=== PATIENT | male | born 1965 | race Caucasian/White ===

== ENCOUNTER 2017-05-18 10:13 | Inpatient (IN) | payer MEDICARE, MEDICAID ==
[2017-05-18] VITALS (8 sets, daily range): BP systolic 104–135; BP diastolic 75–96; PULSE 71–142; RESP 8–17; O2SAT 97–98
[~2017-05-18] VITALS: Ht 174 cm; Wt 102.2 kg
[2017-05-18] MEDS ORDERED: Diltiazem 5 mg/mL 5 mL Inj IVPUSH ONE ×2 (10:50→12:15)
--- NOTE | 2017-05-18 10:50 | ED.REPORT ---
HPI-Chest Pain 40 and Over Date of Service May 18, 2017 ED Provider: Ruben Abel MD A 52 year old male with a history of paroxysmal A-fib, hypertension and thyroid disease presents to the ED via EMS with heart palpitations that began 1 hour prior to arrival. He reportedly woke up this morning with heart arrhythmia and contacted EMS after his symptoms persisted. His discomfort has been constant since onset. Patient has never required cardioversion for his A-fib and is not currently taking any anticoagulants. His last episode of A-fib was one year ago. Patient is typically bradycardic at his baseline. Patient denies any fever , chills, chest pain or SOB. He currently takes Aspirin, metoprolol and buprenorphine. He has been taking his medications as prescribed. Nursing Notes Stated Complaint: ARRTHYMIA Chief Complaint: Dysrhythmia/Cardiac Nursing Notes Reviewed: Yes Allergies: Coded Allergies: oxymorphone HCl (Verified Allergy, Unknown, 05/18/17) dystonic reactions x 3 weeks. Scheduled Aspirin (Aspirin) 81 Mg Tablet 81 MG PO DAILY Buprenorphine (Buprenorphine) 2 Mg Tab.subl 4 MG SL q6 hr Levothyroxine (Levothyroxine) 75 Mcg Tablet 75 MCG PO DAILY Metoprolol Tartrate (Metoprolol Tartrate) 25 Mg Tablet 25 MG PO BID Omeprazole (Omeprazole) 40 Mg Capsule.dr 40 MG PO DAILY Propafenone (Propafenone) 150 Mg Tablet 150 MG PO Q8H Scheduled PRN Alprazolam (Alprazolam) 1 Mg Tablet 1 MG PO DAILY PRN PRN For Anxiety Ibuprofen (Ibuprofen) 600 Mg Tablet 600 MG PO BID PRN PRN For Pain oxyCODONE-Acetaminophen 10-325 mg (oxyCODONE-Acetaminophen 10-325 mg) 1 Each Tablet 1 TABLET PO Q4H PRN PRN For Pain General Time Seen by MD: 10:49 Chief Complaint Other (Heart Palpitations) Hx Obtained From: Patient Arrived By: Ambulance Sudden in Onset?: No Onset Occurred: 1 - 4 hours ago Symptom Duration: Constant Associated with: Denies: Fever, Shortness of Breath Pertinent Negative: Pt denies other symptoms Recent Healthcare: No recent doctor visit, No recent hospitalization Risk Factors )( CAD Risk Stratification Hypertension Risk factors reviewed )( TAD Risk Stratification Hypertension Risk factors reviewed )( PE Risk Stratification Risk factors reviewed Past Medical History 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 Smoking History Never Smoker Social History Other Social History: Local resident Ambulatory Status Independent Review of Systems Constitutional: Denies: Chills, Fever Respiratory: Denies: Shortness of breath Cardiovascular: Reports: Palpitations, Denies: Chest pain Complete sys rev & neg: except as marked. Physical Exam Initial Vital Signs Vital Signs (First) Date Time Temp Pulse Resp B/P Pulse Ox O2 Delivery O2 Flow Rate FiO2 05/18/17 10:46 37.1 124 12 135/96 05/18/17 12:37 Room Air Initial VS: Reviewed Head / Eyes: Atraumatic, Normocephalic, PERRL Neck: Supple, Non-tender, Full range of motion Extremities: Vascular intact, Neuro intact, No swelling, No tenderness Skin: Warm, Dry, No cyanosis Neurologic: Alert, Oriented, Nonfocal Psychiatric: Mood/affect normal, Behavior normal, Normal thought content General/Constitutional: Awake, Alert, No acute distress Respiratory / Chest: Atraumatic, Breath sounds NL, Breath sounds = bilat, No respiratory distress Cardiovascular: Regular rhythm, Heart sounds NL, No murmurs, Peripheral circulation NL (No LE edema), Pulses = bilaterally Heart Rate / Rhythm: Positive: Tachycardia Abdomen: Atraumatic, Soft, Non-tender Interpretation & Diagnostics Lab Results Interpretation Result Diagram: 05/19/17 0600 05/19/17 0600 Test 05/18/17 10:48 Neutrophils (%) (Auto) 48.5% (40-74) Lymphocytes (%) (Auto) 36.0% (14-46) Monocytes (%) (Auto) 10.1% (4-12) Eosinophils (%) (Auto) 4.4% (0-5) Basophils (%) (Auto) 0.8% (0-3) Prothrombin Time 10.0sec (8.1-12.5) Prothromb Time International Ratio 0.94ratio Magnesium Level 1.9mg/dL (1.6-2.6) Troponin T 0.010ug/L (0.0-0.011) Thyroid Stimulating Hormone (TSH) 4.980uIU/mL (0.450-4.500) ECG Interpretation ECG Interpretation: A-fib Rate 120 bpm No STT changes Time: 10:47 Interpreted by: ED physician X-Ray Chest Interpretation Chest Xray Interpretation: IMPRESSION: No acute pulmonary process. Dictated by: Temitope Acuna M.D. on 05/18/2017 at 11:22 Interpretation / Wet Read by: Interpret - ED physician Re-Eval/Medical Decision Med Decision/Clinical Course 82-year-old male history of paroxysmal atrial fibrillation presenting with atrial fibrillation with RVR. He believes he went into this within the last 24 hours. On arrival with atrial fibrillation with RVR heart rate up to the 150s. He was given multiple doses of IV diltiazem with transient improvements. However he continued to go back up into the 150s. He was placed on diltiazem drip and admitted to the hospital. He is currently on an aspirin for anticoagulation. He is on propafenone 150mg TID and metoprolol 12.5mg po bid. he was also given 1 dose of metoprolol 25 mg in ER. Admitted to hospitalist. Time of Eval: 11:44 Patient Status: Condition improved Re-Evaluation/Progress Note: He is informed of his reassuring lab work, EKG and chest X-ray. Still in A-fib. Time of Eval: 12:11 Patient Status: Condition improved Re-Evaluation/Progress Note: A-fib improved. He is currently complaining of dental pain. Patient is informed of his results. Time of Eval: 13:18 Patient Status: Condition improved Re-Evaluation/Progress Note: Patient is rechecked. HR = 88 All questions about the intended treatment plan are addressed. He understands and agrees with the plan. Time of Eval: 13:39 Patient Status: Condition worsened Re-Evaluation/Progress Note: HR = 126 He is informed of the recommendation to admit and agrees with the recommended plan to admit with Diltiazem drip. Consultation #1: Referral / Consult Name: Eladia Polo MD Consulted With: Cardiology Call Returned at: 12:18 Sample Examiner: Agrees with eval, Agrees with plan Note: Increase Metoprolol dose to 25mg Start on Eloquis Consultation #2: Referral / Consult Name: Isabel Gibson DO Consulted With: Hospitalist Call Returned at: 13:52 Sample Examiner: Will see patient, Agrees with eval, Agrees with plan, Accepts admit Counseled Regarding: Diagnosis, Lab results, Need for admission Discharge & Departure Primary Impression: Atrial fibrillation with RVR Disposition: ADMITTED TO HOSPITAL Discharge Condition All VS Reviewed: Yes Condition: Stable Referrals: Ovi Alfredo MD (PCP) Crit Care Except Billable Proc Time Spent: 30-74 minutes (50 minutes) Services Performed: Patient management by me, Time spent at bedside, Reviewing test results, Reviewing imaging, Discussing patient care, Documentation in record Scribe Attestation Portions of this note were transcribed by Tahira Leslie. I, Dr. Abel personally performed the history, physical exam and medical decision-making; I reviewed and confirmed the accuracy of the information in the transcribed note. Signed by: Rosalie Mcginnis, 05/18/17 2194. copies to: Ovi Alfredo MD, Ben M MD May 18, 2017 10:49 TAHIRA LESLIE May 18, 2017 11:02 IMPRESSION: No acute pulmonary process. Dictated by: Temitope Acuna M.D. on 05/18/2017 at 11:22 Interpretation / Wet Read by: Interpret - ED physician Re-Eval/Medical Decision Time of Eval: 11:44 Patient Status: Condition improved Re-Evaluation/Progress Note: He is informed of his reassuring lab work, EKG and chest X-ray. Still in A-fib. Time of Eval: 12:11 Patient Status: Condition improved Re-Evaluation/Progress Note: A-fib improved. He is currently complaining of dental pain. Patient is informed of his results. Time of Eval: 13:18 Patient Status: Condition improved Re-Evaluation/Progress Note: Patient is rechecked. HR = 88 All questions about the intended treatment plan are addressed. He understands and agrees with the plan. Time of Eval: 13:39 Patient Status: Condition worsened Re-Evaluation/Progress Note: HR = 126 He is informed of the recommendation to admit and agrees with the recommended plan to admit with Diltiazem drip. Consultation #1: Referral / Consult Name: Eladia Polo MD Consulted With: Cardiology Call Returned at: 12:18 Sample Examiner: Agrees with eval, Agrees with plan Note: Increase Metoprolol dose to 25mg Start on Eloquis Consultation #2: Referral / Consult Name: Gibson,Isabel L DO Consulted With: Hospitalist Call Returned at: 13:52 Sample Examiner: Will see patient, Agrees with eval, Agrees with plan, Accepts admit Counseled Regarding: Diagnosis, Lab results, Need for admission Discharge & Departure Primary Impression: Atrial fibrillation with RVR Disposition: ADMITTED TO HOSPITAL Discharge Condition All VS Reviewed: Yes Condition: Stable Referrals: Ovi Alfredo MD (PCP) Crit Care Except Billable Proc Time Spent: 30-74 minutes (50 minutes) Services Performed: Patient management by me, Time spent at bedside, Reviewing test results, Reviewing imaging, Discussing patient care, Documentation in record Scribe Attestation Portions of this note were transcribed by Tahira Leslie. I, Dr. Abel personally performed the history, physical exam and medical decision-making; I reviewed and confirmed the accuracy of the information in the transcribed note. Signed by: Rosalie Mcginnis, 05/18/17 [id number]. copies to: Ovi Alfredo MD, Ben M MD May 18, 2017 10:49 TAHIRA LESLIE May 18, 2017 11:02
[2017-05-18 11:06] LABS: BASOPHILS % (AUTO) 0.8 % (0-3); EOSINOPHILS % (AUTO) 4.4 % (0-5); MONOCYTES % (AUTO) 10.1 % (4-12); Mean Corpuscular Hemoglobin 31.1 pg (27.0-35.0); Mean Corpuscular Volume 89.8 fL (81-100); NEUTROPHILS % (AUTO) 48.5 % (40-74); Platelet Count 149 bil/L (150-400)
[2017-05-18] MEDS ORDERED: DICL50TA7 PO (11:16)
[2017-05-18] MEDS ORDERED: OMEP40CA36 PO (11:16)
[2017-05-18] MEDS ORDERED: METO25TA6 PO ×2 (11:16→12:21)
[2017-05-18] MEDS ORDERED: ASPI-973 PO (11:16)
[2017-05-18] MEDS ORDERED: ALPR1TAB7 PO (11:16)
[2017-05-18] MEDS ORDERED: LEVO75TA4 PO (11:16)
[2017-05-18] MEDS ORDERED: BUPR2TAB SL (11:16)
[2017-05-18 11:17] LABS: INR 0.94 ratio
--- NOTE | 2017-05-18 11:24 | DRSVH ---
PROCEDURE: X-RAY CHEST ONE VIEW, PORTABLE ([id number]) INDICATIONS: CP TECHNIQUE: One view of the chest was acquired. COMPARISON: None. FINDINGS: Surgical changes and devices: None. Lungs and pleura: No pleural effusions or pneumothorax. Lungs are clear. Mediastinum: Mediastinal contours appear normal. Heart size is normal. Bones and chest wall: No suspicious bony lesions. Overlying soft tissues appear unremarkable. IMPRESSION: No acute pulmonary process. Dictated by: Temitope Acuna M.D. on 05/18/2017 at 11:22 Approved by: Temitope Acuna M.D. on 05/18/2017 at 11:22
[2017-05-18 11:29] LABS: TROPONIN T 0.01 ug/L (0.0-0.011)
[2017-05-18 11:40] LABS: Magnesium 1.9 mg/dL (1.6-2.6)
[2017-05-18] MEDS ORDERED: APIX5TAB PO (12:21)
[2017-05-18] MEDS ORDERED: HYDR-4003 PO (13:19)
[2017-05-18] MEDS ORDERED: Diltiazem Inj 125 MG in Dextrose 5% 100 ML IV SCH (13:54)
[2017-05-18] MEDS ORDERED: Alum-Mag Hydrox-Simeth 30 mL Suspension PO PRN ×2 (13:55→17:25)
[2017-05-18] MEDS ORDERED: Ondansetron 2 mg/mL 2 mL Inj IVPUSH PRN ×2 (13:55→17:25)
--- NOTE | 2017-05-18 15:10 | PCM.HPMED ---
Subjective Date of Service May 18, 2017 Primary Provider: Admitting Physician: Isabel Gibson DO Primary Care Physician: Other,Physician Attending Physician: Isabel Gibson DO Allergies Coded Allergies: oxymorphone HCl (Verified Allergy, Unknown, 05/18/17) dystonic reactions x 3 weeks. PMH Social History Hx Alcohol Use: No Hx Substance Use: No Smoking Status: Never Smoker Exam Vital Signs Vital Sign - Last Date Time Temp Pulse Resp B/P Pulse Ox O2 Delivery O2 Flow Rate FiO2 05/18/17 14:34 123 8 118/78 05/18/17 12:37 Room Air 05/18/17 10:46 37.1 Lab and Diagnostics Result Diagram: 05/18/17 1048 05/18/17 1048 Assessment & Plan CC: Heart palpitations HPI: Patient is a 52 year old male who woke up this morning and while getting dressed felt that he suddenly his heart pounding and he felt like he went into afib. The patient was daiphoretic and called EMS. Patient states that for the last 2-3 weeks he has had some waxing and waning of mild chest pain and did not think anything of it. He did not call his choral teacher as he thought this would just musculoskeletal pain. Patient denies nausea, vomiting, diarrhea, chest pain , fever, chills, shortness of breath. The patient states that he has had previous episodes of afib in the past with the last episode in Oct 2015. The patient states that he has been stable on Propafone since May 2016 and he has been stable ever since until this particular episode. The patient's choral teacher was called (see Dr. Carlisle) as the patient was converted into sinus rhythm in the ED. Dr. Carlisle recommended starting the patient on Eliquis and then continuing him on an increased dose of his metoprolol 25 mg twice a day. The patient was getting ready to discharge however he sat up and started to walk and then his heart rate increased to 150. The patient was then admitted and placed on a diltiazem drip and heparin started. Cardiogist: Dr. Carlisle in [facility] in [place] The patient also complains of tooth pain as he recently chipped his right upper molar. The patient is currently scheduled with his regular dentist however he has been saving up in order to receive the procedure to fix his tooth. 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 Afib Hypothyroid HTN SHx: Multiple surgeries on feet and hands because of the phecomilia R knee surgery Mouth surgery as a child FHx: Mother age 55 had HTN, lung cancer Brother age 58 CHF Father age 85 living colon cancer, CAD SocHx: Occupation: On disability Tobacco history: Patient current smoker currently 2-3 cigs per day, previous 1/ 2PPD Alcohol use: Former drinker quit 30+ years ago previous heavy drinker a 5th a day and a few cases of beer Drug use: Patient currently smokes pot, previous cocaine use and high dose oxycontin for chronic pain ROS: A complete review of systems was performed or attempted to be performed. Please see HPI for pertinent positives, all other systems are negatives. Physical Exam: GEN: Patient was awake, alert, responding appropriately to questions HEENT: Pupils equal round and reactive to light, extraocular eye muscles intact , Neck soft supple, trachea midline, nomocephalic/atraumatic CV: Tachycardic and irregular, no murmur auscultated Respiratory: CTAB, no wheezes, rales, rhonchi GI: +bowel sounds x4, soft, compressible, nontender to palpation EXT: no clubbing, cyanosis, edema, positive phecomelia flippers of the hands and feet Neuro: Cranial nerves II-XII grossly intact Psych: mood and affect were appropriate Assessment and Plan 52-year-old male who presents with tachycardia secondary to A. fib with RVR A. fib with RVR, present on admission -Diltiazem drip started -Heparin drip per protocol started -For anticoagulation the patient may start Eliquis upon discharge as recommended by his choral teacher -Once patient converts to sinus his choral teacher would like the patient started on metoprolol for rate control 25 mg twice a day, titrate up as blood pressure tolerates -May continue aspirin 81 mg daily upon discharge as per recommendation by patient's choral teacher -May consider consulting cardiology here if patient remains uncontrolled Tooth pain, present on admission -Continue Subutex -Toradol 30 mg IV every 6 hours when necessary -Tylenol 975 mg when necessary every 4 hours - Continue to monitor for any signs of bleeding as patient is on Toradol and heparin -Follow-up CBC & CMP in the morning 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
[2017-05-18] MEDS ORDERED: oxyCODONE-Acetamin 5-325 mg Tablet PO PRN (16:15)
[2017-05-18] MEDS ORDERED: PROP150T PO (16:46)
[2017-05-18] MEDS ORDERED: IBUP-1827 PO (16:46)
[2017-05-18] MEDS ORDERED: OXYC-466 PO (16:47)
[2017-05-18] MEDS: Buprenorphine 2 mg SL Tablet SL SCH ×3 (17:03→22:33)
[2017-05-18] MEDS: Diltiazem HCl 125 MG in 0.9% Sodium Chloride 100 ML, Pharmacy To Mix 1 EA IV SCH (17:25)
[2017-05-18] MEDS ORDERED: Heparin 5,000 Unit/mL Inj IVPUSH PRN (17:25)
[2017-05-18] MEDS ORDERED: Polyethylene Glycol (PEG) 17 Gm Powder PO PRN (17:25)
[2017-05-18] MEDS ORDERED: Heparin 25K Unit/500mL 0.45 NS 25,000 UNIT in IV Premix 1 EACH IV SCH (17:25)
--- NOTE | 2017-05-18 18:09 | PCM.ADCARE ---
Advance Care Planning Note Plan: Purpose of encounter: Goals of care Parties in attendance: The patient, Dr. Gibson Diagnosis: A. 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 The patient understands that this means for chest compressions , intubation, pressors, and all measures involved with CPR. CODE STATUS: Full code Time spent with advanced care planning: Greater than 16 minutes Isabel Gibson DO May 18, 2017 18:09
[2017-05-18] MEDS: Heparin 25K Unit/500mL 0.45 NS 25,000 UNIT in IV Premix 1 EACH IV SCH (18:15)
--- NOTE | 2017-05-18 18:44 | NUR ---
Transfer/Diltiazem gtt/Heparin gtt Pt. was transferred from the ED to room 2021 [facility] and arrived at about 1545. Pt. appeared in no distress but did c/o of tooth pain. Pt. also came with dilt. gtt running at 5ml/hr. When Pt. is not being active his HR is low 100s. With movement or talking his HR increases to 140. hearth rhythm currently AFIB. At about 1800 Pt. was started on heparin drip running at 1000UNITS/hr. Pts. dilt. gtt was increased to 10mL/hr. Will continue to monitor.
[2017-05-19] VITALS (9 sets, daily range): BP systolic 100–140; BP diastolic 62–89; PULSE 71–90; RESP 12–19; O2SAT 94–98
[2017-05-19] MEDS: Heparin Protocol Boluses IVPUSH PRN ×3 (00:29→20:33)
[2017-05-19] MEDS: Diltiazem HCl 125 MG in 0.9% Sodium Chloride 100 ML, Pharmacy To Mix 1 EA IV SCH ×2 (03:31→13:50)
[2017-05-19] MEDS: Buprenorphine 2 mg SL Tablet SL SCH ×2 (03:31→08:17)
--- NOTE | 2017-05-19 05:27 | NUR ---
Diltiazem/Heparin/Tele Patient on diltiazem gtt at 12 ml/hour and heparin gtt at 1200 units/hour. Tele: a-fib with rates in the 70s. Patient reports feeling better now that his heart rate has come down. Denies chest pain, shortness of breath, palpitations. Continue to monitor.
[2017-05-19 06:16] LABS: Mean Corpuscular Hemoglobin 31.2 pg (27.0-35.0); Mean Corpuscular Volume 90.7 fL (81-100)
[2017-05-19] MEDS: Pantoprazole 40 mg ER24 Tablet PO SCH (08:17)
--- NOTE | 2017-05-19 08:49 | NUR ---
Case Management: Clarification of patient status: inpatient per MD order on admission. Cherie Park, RN
[2017-05-19] MEDS: oxyCODONE-Acetamin 5-325 mg Tablet PO SCH ×4 (13:46→23:02)
--- NOTE | 2017-05-19 14:11 | NUR ---
Social Work Note: Initial Assessment/Multidisciplinary Rounds Data& Assessment: EMR Reviewed. Pt was discussed in AM rounds today, per MD pt is not medically ready for discharge at this time. Sam Reed is a 52 year old male admitted on 05/18/2017 for AFIB with RVR. Pt has Medicare and [facility] Medicaid Supplement. Pt sees a primary care provider in [facility]. Pt lives in [facility] [facility] with his S/O and is independent at baseline with ADL's but does not drive. Pt has had home health in the past after a foot surgery 20+ years ago but otherwise has not had any additional services. Pt does not have SNF hx. Pt does not require any DME. Pt does not have LTC insurance or VA benefits. Pt provided with DPOA/AD paperwork to review and complete when possible. MD did not identify any concerns with pt capacity for self care. Pt provided with Discharge Planning Check List. Pt sister plans to transport him home to her house for the next week before pt returns to his home in [facility] [place]. Pt denies any other needs. No other discharge needs or MD orders identified at this time. Plan: Anticipated discharge home with family via POV when medically ready. Pt denies any other needs. No other discharge needs or MD orders identified at this time. PRITESH Pritchett Addendum: 05/19/17 at 1415 by TERESA SAWYER Amended: Links added.
--- NOTE | 2017-05-19 14:30 | NUR ---
Case Management: [facility] presented with explanation, signed original to chart, copy to patient at [id number]. Cherie Park RN
--- NOTE | 2017-05-19 15:04 | NUR ---
spiritual care; pt request conversational vist. pt energetic and conversant bo about his bradford, recent insights, restoration and sense of life change as his bradford takes on new importance for him. Pt described his framework for bradford, was eager to articulate these themes and shared of recent family stress as he is caring for elderly father. Pt gave detailed account of his medical care and prognosis including a sense of hopefulness about managing and returning to his former activities. following
[2017-05-19] MEDS: Heparin 25K Unit/500mL 0.45 NS 25,000 UNIT in IV Premix 1 EACH IV SCH (17:30)
--- NOTE | 2017-05-19 18:06 | PCM.PNMED ---
Subjective Date of Service May 19, 2017 Subjective Overnight Events: None Today, Mr. Reed is resting in bed comfortably and in no acute distress. He is currently still in atrial fibrillation on a diltiazem drip. He is not have any chest pain or tooth pain at this time. He is not having any fevers, chills, nausea, vomiting, abdominal pain. Exam Vital Signs Vital Sign - Last Date Time Temp Pulse Resp B/P Pulse Ox O2 Delivery O2 Flow Rate FiO2 05/19/17 03:13 36.8 75 12 100/66 97 Room Air Intake and Output 05/18/17 05/18/17 05/19/17 Cumulative From/Thru 15:00 23:00 07:00 05/18/17 10:46 - 05/19/17 05:38 Intake Total 388 ml 388 ml Balance 388 ml 388 ml Intake IV Total 388 ml 388 ml Exam GEN: Patient was awake, alert, responding appropriately to questions and in no acute distress HEENT: Pupils equal round and reactive to light, extraocular eye muscles intact , Neck soft supple, trachea midline, nomocephalic/atraumatic CV: Tachycardic and irregularly irregular, no murmurs rubs or gallops Respiratory: Clear to auscultation bilaterally, no wheezes, rhonchi or rales GI: Soft, nontender, nondisted, bowel sounds present EXT: no clubbing, cyanosis, edema, positive phecomelia flippers of the hands and feet Neuro: Cranial nerves II-XII grossly intact Psych: mood and affect were appropriate Lab and Diagnostics Item Value Date Time Thyroid Stimulating Hormone (TSH) 4.980 uIU/mL H 05/18/17 1048 Result Diagram: 05/19/17 0600 05/18/17 1048 X-Rays, CTs and MRIs 05/18/17 PROCEDURE: X-RAY CHEST ONE VIEW, PORTABLE ([id number]) IMPRESSION: No acute pulmonary process. Dictated and approved by: Temitope Acuna M.D. on 05/18/2017 at 11:22 Assessment & Plan Sam Reed is a 52-year-old male with past medical history of Atrial fibrillation typically controlled with metoprolol tartrate and propafenone, hypothyroidism and hypertension, who presented with tachycardia secondary to A. fib with RVR. Atrial Fibrillation with RVR, present on admission, active -Diltiazem drip continued -Continue Heparin drip per protocol -Start home Metoprolol tartrate 25 mg BID and propafenone. 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 Benjamin on 05/19/2017 and I agree with the history, exam and plan as outlined in the note above. . Robbin Benjamin DO May 19, 2017 06:48 Booker Grimes MD May 22, 2017 07:38
--- NOTE | 2017-05-19 18:33 | NUR ---
Sinus Rhythm/Diltiazem drip Discontinued/Heparin drip Pt. converted to SR at about 1245 and has been in SR ever since. MD was made aware and diltiazem drip has been discontinued per MD after weaning Pt. off diltiazem drip. Pt. denies CP, SOB at this time. Heparin drip is running at 1300UNITS/hr with no complications. Will continue to monitor.
[2017-05-20] MEDS: oxyCODONE-Acetamin 5-325 mg Tablet PO SCH ×3 (03:11→11:59)
[2017-05-20 04:34] VITALS: BP 110/79; PULSE 82; RESP 14; O2SAT 97
[2017-05-20 05:52] LABS: BASOPHILS % (AUTO) 0.8 % (0-3); EOSINOPHILS % (AUTO) 4.9 % (0-5); MONOCYTES % (AUTO) 9.6 % (4-12); Mean Corpuscular Hemoglobin 30.7 pg (27.0-35.0); Mean Corpuscular Volume 88.5 fL (81-100); NEUTROPHILS % (AUTO) 39.4 % (40-74); Platelet Count 129 bil/L (150-400)
--- NOTE | 2017-05-20 07:46 | NUR ---
Assumed care @ 1930. A/O x3, QUEEN. Denies SOB, or chestpain. Reports increase of tooth pain throughout shift. Tele: SR in 70s. Heparin drip complete, receiving Eliquas. Resting with eyes closed, VSS. Report given to oncoming RN.
[2017-05-20] MEDS: Pantoprazole 40 mg ER24 Tablet PO SCH (08:19)
[2017-05-20 08:23] VITALS: BP 107/56; PULSE 78; RESP 18; O2SAT 97
[2017-05-20 11:23] VITALS: PULSE 69
[2017-05-20] MEDS ORDERED: OXYC1TAB24 PO (11:35)
[2017-05-20] MEDS ORDERED: PROP150T PO (11:35)
[2017-05-20] MEDS ORDERED: METO25TA6 PO (11:35)
[2017-05-20] MEDS ORDERED: APIX5TAB PO (11:35)
--- NOTE | 2017-05-20 11:37 | PCM.DIMED ---
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 Hypothyroidism Hypertension Medication Instructions Additional med instructions Metoprolol Tartrate 25 mg twice daily until reviewed by your caridologist Propafenone 150 mg, one pill three times per day until reviewed by your quality liaison Eliquis 5 mg one pill twice per day until reviewed by your quality liaison Percocet 5-325 1-2 pills, up to 4 times per days needed for tooth pain, given for 1 week Diet Discharge Diet: No restrictions Activity Discharge Activity: No restrictions Call your provider Call your provider for: Fever or Chills, Shortness of breath, Chest pain, Weakness (unilateral) Patient Instructions Patient Instructions Medications Follow-up plan Follow up with the following providers below - Dr. Carlisle for your atrial fibrillation in 2-4 weeks - Discuss Metoprolol 25 mg daily - Isabela - Dr. Yohannes Amin in 1-2 weeks - Discuss tooth pain and recent hospitalization for atrial fibrillation - Dr. Sepulveda in 1 week - For tooth pain Booker Grimes MD 05/22/17 0740: Discharge Instructions Attending's Statement The patient was seen and examined together with Dr. Benjamin on 05/20/2017 and I agree with the history, exam and plan as outlined in the note above. . Robbin Benjamin DO May 20, 2017 11:25 Booker Grimes MD May 22, 2017 07:40
--- NOTE | 2017-05-20 13:18 | NUR ---
Discharge Pt discharged at 1315. He was given discharge instructions and confirmed understanding of these instructions, he reported he had no questions. He was given 4 prescriptions to take home with him. He was given instructions for follow up care. He left with all of his belongings. His sister picked him up and would be driving him to her house.
--- NOTE | 2017-05-20 16:38 | NUR ---
Social Work:Discharge/Multidisciplinary Rounds Data& Assessment: Pt was discussed in AM rounds today, Per pt is medically ready to discharge home via POV. SW met with pt at bedside to confirm discharge plan and assess for any unmet needs. Pt sister is transporting him home today. Pt is independent with self care during his hospitalization. MD does not identify concerns for pt capacity for self care. Pt denies any needs. No other discharge needs or MD orders identified. All updated and agreeable to plan. Plan: Per pt is medically ready to discharge home via POV. Pt denies any needs. No other discharge needs or MD orders identified. All updated and agreeable to plan. PRITESH Pritchett Addendum: 05/20/17 at 1652 by TERESA SAWYER had placed SW order to run eqluist prescription. Per , provided pt with medical coupon and preferred that pt follow up with his PCP for final anticoagulant recommendations. No further PRITESH orders identified. PRITESH Pritchett
--- NOTE | 2017-05-20 20:36 | PCM.DC.MED ---
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 Dictated and approved by: Temitope Acuna M.D. on 05/18/2017 at 11:22 Brief History Mr. Sam Reed is a 52 year old male with past medical history of paroxysmal atrial fibrillation, hypothyroidism and hypertension, who presented to the ED via EMS with a heart pounding sensation and diaphoresis, found to be in atrial fibrillation with RVR and was admitted under observation for treatment. He was started on a diltiazem drip, which initially had no affect. After giving metoprolol 25 mg and propafenone the following day, he converted within 30 minutes into sinus rhythm and was maintained it throughout the remainder of his stay. We started him on Eliquis 5 mg BID for anticoagulation and increased his home dose of metoprolol from 12.5 mg to 25 mg per his fermentologist, Dr. Carlisle's recommendation. We also continued him on his home propafenone of 150 mg TID. It should be noted that while the patient was here, he was having significant tooth pain not relieved by his home subutex from a chipped tooth. We ended up holding his subutex and gave him percocet while in the hospital and at discharged he was given percocet 5-325, 50 pills to last him through next week's dental surgery. He should follow up with his fermentologist in 2-4 weeks, primary care provider in 1-2 weeks and his dentist in 1 week. Hospital Course Sma Reed is a 52-year-old male with past medical history of Atrial fibrillation typically controlled with metoprolol tartrate and propafenone, hypothyroidism and hypertension, who presented with tachycardia secondary to A. fib with RVR. Atrial Fibrillation with RVR, present on admission, active - Metoprolol tartrate 25 mg BID and propafenone. 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, present on admission and stable -Held subutex, used percocet 5-325, two pills, q4h for patient's tooth pain Hypothyroidism, present on admission and stable -Continued home dose of 75mcg -TSH results as above Hypertension, present on admission and stable -Metoprolol 25 mg BID Exam Vital Signs (Last) Date Time Temp Pulse Resp B/P Pulse Ox O2 Delivery O2 Flow Rate FiO2 05/20/17 11:23 69 05/20/17 08:23 36.9 18 107/56 97 05/20/17 04:34 Room Air Exam GEN: Patient was awake, alert, responding appropriately to questions and in no acute distress HEENT: Pupils equal round and reactive to light, extraocular eye muscles intact , Neck soft supple, trachea midline, nomocephalic/atraumatic CV: Regular rate and rhythm, no murmurs rubs or gallops Respiratory: Clear to auscultation bilaterally, no wheezes, rhonchi or rales GI: Soft, nontender, nondisted, bowel sounds present EXT: no clubbing, cyanosis, edema, positive phecomelia flippers of the hands and feet Neuro: Cranial nerves II-XII grossly intact Psych: mood and affect were appropriate Test 05/18/17 10:48 05/20/17 00:51 05/20/17 05:20 Prothrombin Time 10.0sec (8.1-12.5) Prothromb Time International Ratio 0.94ratio Magnesium Level 1.9mg/dL (1.6-2.6) Troponin T 0.010ug/L (0.0-0.011) Thyroid Stimulating Hormone (TSH) 4.980uIU/mL (0.450-4.500) Activated Partial Thromboplast Time 50.3sec (22.8-33.0) White Blood Count 4.9th/mm3 (3.8-10.1) Red Blood Count 3.91mil/mm3 (4.40-5.80) Hemoglobin 12.0g/dL (13.8-17.2) Hematocrit 34.6% (41.0-50.0) Mean Corpuscular Volume 88.5fL (81-100) Mean Corpuscular Hemoglobin 30.7pg (27.0-35.0) Mean Corpuscular Hemoglobin Concent 34.7% (32.0-37.0) Red Cell Distribution Width 13.5% (12.3-15.4) Platelet Count 129bil/L (150-400) Neutrophils (%) (Auto) 39.4% (40-74) Lymphocytes (%) (Auto) 45.1% (14-46) Monocytes (%) (Auto) 9.6% (4-12) Eosinophils (%) (Auto) 4.9% (0-5) Basophils (%) (Auto) 0.8% (0-3) Sodium Level 141mEq/L (134-144) Potassium Level 4.2mEq/L (3.5-5.2) Chloride Level 104mEq/L (97-108) Carbon Dioxide Level 23mmol/L (18-29) Blood Urea Nitrogen 19mg/dL (6-24) Creatinine 0.70mg/dL (0.76-1.27) Estimat Glomerular Filtration Rate 126mL/min (>59) Glucose Level 109mg/dL (60-99) Calcium Level 9.0mg/dL (8.5-10.1) Total Bilirubin 0.2mg/dL (0.0-1.2) Aspartate Amino Transf (AST/SGOT) 13U/L (0-50) Alanine Aminotransferase (ALT/SGPT) 16U/L (0-44) Alkaline Phosphatase 55U/L (25-150) Total Protein 6.3g/dL (6.4-8.4) Albumin 3.8g/dL (3.4-5.0) Discharge Medications Discharge Medications Apixaban (Eliquis) 5 Mg Tablet 5 MG PO BID Prescribed by: HARINI BENJAMIN Aspirin (Aspirin) 81 Mg Tablet 81 MG PO DAILY (Reported) Buprenorphine (Buprenorphine) 2 Mg Tab.subl 4 MG SL q6 hr (Reported) Levothyroxine (Levothyroxine) 75 Mcg Tablet 75 MCG PO DAILY (Reported) Metoprolol Tartrate (Metoprolol Tartrate) 25 Mg Tablet 25 MG PO BID Prescribed by: HARINI BENJAMIN Omeprazole (Omeprazole) 40 Mg Capsule.dr 40 MG PO DAILY (Reported) Propafenone (Propafenone) 150 Mg Tablet 150 MG PO Q8H Prescribed by: HARINI BENJAMIN, oxyCODONE-Acetaminophen 5-325 mg (oxyCODONE-Acetaminophen 5-325 mg) 1 Each Tablet 1-2 TAB PO QID Prescribed by: HARINI BENJAMIN, As needed Alprazolam (Alprazolam) 1 Mg Tablet 1 MG PO DAILY PRN PRN For Anxiety (Reported ) Ibuprofen (Ibuprofen) 600 Mg Tablet 600 MG PO BID PRN PRN For Pain (Reported) Additional med instructions Metoprolol Tartrate 25 mg twice daily until reviewed by your caridologist Propafenone 150 mg, one pill three times per day until reviewed by your fermentologist Eliquis 5 mg one pill twice per day until reviewed by your fermentologist Percocet 5-325 1-2 pills, up to 4 times per days needed for tooth pain, given for 1 week Followup Plan Follow-up plan Metoprolol Tartrate 25 mg twice daily until reviewed by your caridologist Propafenone 150 mg, one pill three times per day until reviewed by your fermentologist Eliquis 5 mg one pill twice per day until reviewed by your fermentologist Percocet 5-325 1-2 pills, up to 4 times per days needed for tooth pain, given for 1 week (50 pills) Follow up with the following providers below - Dr. Carlisle for your atrial fibrillation in 2-4 weeks - Discuss Metoprolol 25 mg daily - Isabela - Dr. Yohannes Amin in 1-2 weeks - Discuss tooth pain and recent hospitalization for atrial fibrillation - Dr. Sepulveda in 1 week - For tooth pain Discharge Diet: No restrictions Discharge Activity: No restrictions Patient Instructions Medications Time spent Greater than 30 minutes was spent in preparation of discharge with greater than 50% of that time dedicated to patient counseling and coordination of care. . Attending Statement The patient was seen and examined together with Dr. Benjamin on 05/20/2017 and I agree with the history, exam and plan as outlined in the note above. . Harini Benjamin DO May 20, 2017 20:19 Booker Grimes MD May 22, 2017 07:41
== END 2017-05-20 13:28 | disposition home or self-care (01) | DRG 310 ==
LOC: SED 10:13 → EDBD 10:13 → PCC 14:26 → OBSVTOIN 14:26
PROVIDERS: ADMIT Neuromusculoskeletal Medicine & OMM; ATTEND Neuromusculoskeletal Medicine & OMM
DX: I48.0 Paroxysmal atrial fibrillation (principal); Z79.01 Long term (current) use of anticoagulants; Q73.1 Phocomelia, unspecified limb(s); G89.29 Other chronic pain; E03.9 Hypothyroidism, unspecified; I10 Essential (primary) hypertension; K08.89 Other specified disorders of teeth and supporting structures; F17.210 Nicotine dependence, cigarettes, uncomplicated